=== PATIENT | female | born 1950 | race Caucasian/White ===

== ENCOUNTER 2018-03-12 14:11 | Emergency (ER) | payer OTHER ==
[~2018-03-12] VITALS: Ht 157.5 cm; Wt 107.8 kg
[2018-03-12 15:50] VITALS: BP 136/75
== END 2018-03-12 15:42 | disposition home or self-care (01) ==
LOC: EME 14:11
DX: S93.401A Sprain of unspecified ligament of right ankle, initial encounter (principal); X50.1XXA Overexertion from prolonged static or awkward postures, initial encounter; Y93.01 Activity, walking, marching and hiking; Y99.0 Civilian activity done for income or pay; Z88.8 Allergy status to other drugs, medicaments and biological substances
CPT/HCPCS: 73610; 99281; 99283